=== PATIENT | male | born 1945 | race Caucasian/White ===

== ENCOUNTER 2017-01-29 09:53 | Emergency (ER) | payer MEDICAID, MEDICARE ==
[~2017-01-29] VITALS: Ht 160 cm; Wt 67.0 kg
[2017-01-29 09:56] VITALS: BP 158/79
== END 2017-01-29 11:20 | disposition home or self-care (01) ==
LOC: ER 10:28
DX: H60.91 Unspecified otitis externa, right ear (principal); K02.9 Dental caries, unspecified
CPT/HCPCS: 99283

== ENCOUNTER 2019-10-02 12:23 | Emergency (ER) | payer MEDICARE, MEDICAID ==
[~2019-10-02] VITALS: Ht 157.5 cm; Wt 66.0 kg
[~2019-10-02 12:23] MED LIST: INSU100I28 SQ; SITA50TA3 PO
[2019-10-02] MEDS: KETOROLAC 15MG/ML VIAL IM ONE (15:10)
[2019-10-02 16:24] LABS: CLARITY URINE CLEAR (CLEAR); COLOR URINE YELLOW (YELLOW); KETONES URINE TRACE (NEGATIVE); LEUKOCYTE ESTERASE URINE NEGATIVE (NEGATIVE); NITRITE URINE NEGATIVE (NEGATIVE); OCCULT BLOOD URINE NEGATIVE (NEGATIVE); PROTEIN URINE TRACE (NEGATIVE); SPECIFIC GRAVITY URINE 1.025 (1.005-1.030); UROBILINOGEN URINE 0.2 E.U./dL (0.2-1.0)
[2019-10-02 17:16] VITALS: BP 140/72
== END 2019-10-02 17:18 | disposition home or self-care (01) ==
LOC: ER 12:23
DX: M54.2 Cervicalgia (principal); M54.5 Low back pain; E11.9 Type 2 diabetes mellitus without complications; I10 Essential (primary) hypertension; R07.89 Other chest pain; Z79.4 Long term (current) use of insulin; Z79.899 Other long term (current) drug therapy; V49.88XA Car occupant (driver) (passenger) injured in other specified transport accidents, initial encounter; Y93.89 Activity, other specified; Y92.89 Other specified places as the place of occurrence of the external cause; Y99.8 Other external cause status
CPT/HCPCS: 71045; 72125; 72131; 81003; 96372; 99284; J1885

== ENCOUNTER 2020-07-03 02:31 | Inpatient (IN) | payer MEDICARE, MEDICAID ==
[~2020-07-03] VITALS: Ht 170.2 cm; Wt 68.0 kg
[2020-07-03] MEDS ORDERED: ONDANSETRON HCL 4MG/2ML INJ IV ONE (03:15)
[2020-07-03] MEDS ORDERED: MORPHINE SULFATE 4 MG/ML CPJ (NOT FOR IM USE) IV ONE (03:15)
[2020-07-03 03:59] LABS: BASOPHILS % 0.5 % (0.0-2.0); EOSINOPHILS % 1.2 % (0.0-5.0); HEMATOCRIT. 39.1 % (42.0-52.0); HEMOGLOBIN. 12.9 g/dL (14.0-18.0); LYMPHOCYTES % 15.5 % (20.0-50.0); MEAN CORPUSCULAR HEMOGLOBIN 29.1 pg (28.0-32.0); MEAN CORPUSCULAR VOLUME 87.7 fL (80.0-94.0); MEAN PLATELET VOLUME 8.9 fl (7.4-10.4); MONOCYTES % 5.8 % (2.0-8.0); PLATELET 269 x1000/uL (130-400); RED BLOOD CELL COUNT 4.46 mill/uL (4.7-6.1)
[2020-07-03 04:04] LABS: CHLORIDE 104 mEq/L (98-107)
[2020-07-03 04:09] LABS: ETHANOL BLOOD < 10 mg/dL
[2020-07-03 04:10] LABS: PROTHROMBIN TIME 10.6 sec (9.6-11.0)
[2020-07-03] MEDS ORDERED: PIPERACILLIN/TAZOBACTAM 3.375GM/50ML PREMIX IV ONE (05:15)
[2020-07-03] MEDS ORDERED: PIPERACILLIN/TAZ 3.375G PREMIX 50 ML IV NR (05:15)
[2020-07-03 06:47] LABS: CLARITY URINE CLEAR (CLEAR); COLOR URINE YELLOW (YELLOW); KETONES URINE 2+ (NEGATIVE); LEUKOCYTE ESTERASE URINE NEGATIVE (NEGATIVE); NITRITE URINE NEGATIVE (NEGATIVE); OCCULT BLOOD URINE NEGATIVE (NEGATIVE); PH URINE 5.5 (4.5-8.0); PROTEIN URINE 1+ (NEGATIVE); UROBILINOGEN URINE 0.2 E.U./dL (0.2-1.0)
[2020-07-03] MEDS ORDERED: DOCUSATE SODIUM 100MG CAPSULE PO PRN (07:15)
[2020-07-03] MEDS ORDERED: ACETAMINOPHEN 325MG TABLET PO PRN (07:15)
[2020-07-03] MEDS ORDERED: GUAIFENESIN 200MG/10ML SUGAR FREE UDC PO PRN (07:15)
[2020-07-03] MEDS ORDERED: TRAMADOL 50MG TABLET PO PRN (07:15)
[2020-07-03] MEDS ORDERED: IPRATROPIUM/ALBUTEROL 0.5-3(2.5)MG/3ML NEB NEB PRN (07:15)
[2020-07-03] MEDS ORDERED: NITROGLYCERIN 0.4MG TABLET SL SL PRN (07:15)
[2020-07-03] MEDS ORDERED: MAGNESIUM/ALUMINUM HYDROXIDE/SIMETHICONE 30ML UDC PO PRN (07:15)
[2020-07-03] MEDS ORDERED: DEXTROSE 50% WATER 50ML SYRINGE IV PRN (07:15)
[2020-07-03] MEDS ORDERED: ONDANSETRON HCL 4MG/2ML INJ IV PRN (07:15)
[2020-07-03 07:21] LABS: *BARBITURATES SCREEN URINE NEGATIVE (NEGATIVE); *BENZODIAZEPINES SCREEN URINE NEGATIVE (NEGATIVE); *COCAINE SCREEN URINE NEGATIVE (NEGATIVE); METHADONE URINE SCREEN NEGATIVE (NEGATIVE)
[2020-07-03 07:22] LABS: *AMPHETAMINES SCREEN URINE NEGATIVE (NEGATIVE); CANNABINOID URINE SCREEN NEGATIVE (NEGATIVE); OPIATES URINE SCREEN PRESUMTIVE POSITIVE (NEGATIVE); PHENCYCLIDINE URINE SCREEN NEGATIVE (NEGATIVE)
[2020-07-03 07:38] LABS: TOTAL IRON BINDING CAPACITY 276 ug/dL (250-450)
[2020-07-03] MEDS: DEXT 5%/LACTATED RINGERS 1,000 ML IV SCH ×2 (08:00→14:41)
[2020-07-03 08:01] LABS: FOLIC ACID (FOLATE) SERUM >20 ng/mL ng/mL (>5.38)
[2020-07-03 08:12] LABS: VITAMIN B12 SERUM 813 pg/mL (211-911)
[2020-07-03] MEDS: INSULIN LISPRO 100 UNITS/ML SUBCUT SCH ×5 (08:20→21:20)
[2020-07-03] MEDS: BLOOD SUGAR DIAGNOSTIC STRIP TEST SCH ×4 (09:00→20:59)
[2020-07-03 09:19] VITALS: BP 158/82
[2020-07-03 10:00] VITALS: BP 158/82
[2020-07-03] MEDS: ENOXAPARIN 40MG/0.4ML SYR SUBCUT SCH (11:19)
[2020-07-03] MEDS: PANTOPRAZOLE SODIUM 40 MG/VIAL IV SCH (11:19)
[2020-07-03] MEDS ORDERED: PIPERACILLIN/TAZOBACTAM 3.375 G in DEXT 5% WATER 100 ML IV SCH (14:00)
[2020-07-03] MEDS: PIPERACILLIN/TAZOBACTAM 3.375 G in DEXT 5% WATER 100 ML IV SCH ×2 (14:52→21:00)
[2020-07-03 17:00] VITALS: BP 155/78
[2020-07-03 17:40] VITALS: BP 155/78
[2020-07-03 20:00] VITALS: BP 161/84
[2020-07-03] MEDS ORDERED: ZOLPIDEM TARTRATE 5MG TABLET PO PRN (21:00)
[2020-07-03] MEDS: CLONIDINE 0.1MG TABLET PO PRN (21:00)
[2020-07-03 22:00] VITALS: BP 141/72
[2020-07-04] VITALS (7 sets, daily range): BP systolic 131–167; BP diastolic 64–84
[2020-07-04] MEDS: MORPHINE SULFATE 2 MG/ML CPJ (NOT FOR IM USE) IV PRN ×3 (00:40→17:09)
[2020-07-04] MEDS: CLONIDINE 0.1MG TABLET PO PRN (04:22)
[2020-07-04] MEDS: PIPERACILLIN/TAZOBACTAM 3.375 G in DEXT 5% WATER 100 ML IV SCH ×3 (05:57→21:33)
[2020-07-04] MEDS: BLOOD SUGAR DIAGNOSTIC STRIP TEST SCH ×4 (05:57→21:07)
[2020-07-04] MEDS: INSULIN LISPRO 100 UNITS/ML SUBCUT SCH ×4 (06:08→21:33)
[2020-07-04] MEDS: PANTOPRAZOLE SODIUM 40 MG/VIAL IV SCH (08:28)
[2020-07-04] MEDS: ENOXAPARIN 40MG/0.4ML SYR SUBCUT SCH (08:28)
[2020-07-04] MEDS: DEXT 5%/LACTATED RINGERS 1,000 ML IV SCH ×2 (09:08→22:58)
[2020-07-04] MEDS: ACETAMINOPHEN 325MG TABLET PO PRN (17:08)
[2020-07-05] VITALS: BP 140/75
[2020-07-05] MEDS: ACETAMINOPHEN 325MG TABLET PO PRN ×3 (00:22→18:33)
[2020-07-05 04:00] VITALS: BP 145/76
[2020-07-05] MEDS: PIPERACILLIN/TAZOBACTAM 3.375 G in DEXT 5% WATER 100 ML IV SCH ×3 (05:36→21:02)
[2020-07-05] MEDS: MORPHINE SULFATE 2 MG/ML CPJ (NOT FOR IM USE) IV PRN ×2 (05:53→21:24)
[2020-07-05] MEDS: BLOOD SUGAR DIAGNOSTIC STRIP TEST SCH ×4 (06:06→21:01)
[2020-07-05] MEDS: INSULIN LISPRO 100 UNITS/ML SUBCUT SCH ×4 (06:23→21:23)
[2020-07-05 08:00] VITALS: BP 143/78
[2020-07-05] MEDS: PANTOPRAZOLE SODIUM 40 MG/VIAL IV SCH (09:05)
[2020-07-05] MEDS: ENOXAPARIN 40MG/0.4ML SYR SUBCUT SCH (09:05)
[2020-07-05 12:00] VITALS: BP 139/82
[2020-07-05 12:01] LABS: HEMATOCRIT. 36.5 % (42.0-52.0); MEAN CORPUSCULAR HEMOGLOBIN 28.7 pg (28.0-32.0); MEAN CORPUSCULAR VOLUME 87.6 fL (80.0-94.0); MEAN PLATELET VOLUME 9.4 fl (7.4-10.4); PLATELET 182 x1000/uL (130-400); RED BLOOD CELL COUNT 4.17 mill/uL (4.7-6.1); RED CELL DISTRIBUTION WIDTH 13.6 % (11.6-14.6)
[2020-07-05 12:06] LABS: CHLORIDE 103 mEq/L (98-107)
[2020-07-05] MEDS: DEXT 5%/LACTATED RINGERS 1,000 ML IV SCH (13:01)
[2020-07-05 13:16] LABS: PLATELET ESTIMATE NORMAL
[2020-07-05 16:00] VITALS: BP 132/77
[2020-07-05 20:00] VITALS: BP 159/80
[2020-07-06] VITALS: BP 160/76
[2020-07-06] MEDS: DEXT 5%/LACTATED RINGERS 1,000 ML IV SCH ×3 (01:53→22:35)
[2020-07-06 04:00] VITALS: BP 157/79
[2020-07-06] MEDS: BLOOD SUGAR DIAGNOSTIC STRIP TEST SCH ×4 (06:10→21:40)
[2020-07-06] MEDS: PIPERACILLIN/TAZOBACTAM 3.375 G in DEXT 5% WATER 100 ML IV SCH ×3 (06:10→21:43)
[2020-07-06] MEDS: INSULIN LISPRO 100 UNITS/ML SUBCUT SCH ×4 (06:35→21:55)
[2020-07-06 07:11] LABS: CHLORIDE 104 mEq/L (98-107)
[2020-07-06 07:29] LABS: PHOSPHORUS 2.9 mg/dL (2.5-4.9)
[2020-07-06 08:00] VITALS: BP 176/93
[2020-07-06] MEDS: ENOXAPARIN 40MG/0.4ML SYR SUBCUT SCH (08:18)
[2020-07-06] MEDS: PANTOPRAZOLE SODIUM 40 MG/VIAL IV SCH (08:18)
[2020-07-06] MEDS: ACETAMINOPHEN 325MG TABLET PO PRN (08:19)
[2020-07-06] MEDS: CLONIDINE 0.1MG TABLET PO PRN (08:19)
[2020-07-06 10:20] LABS: HEMATOCRIT. 33.9 % (42.0-52.0); HEMOGLOBIN. 11.5 g/dL (14.0-18.0); MEAN CORPUSCULAR HEMOGLOBIN 29.5 pg (28.0-32.0); MEAN CORPUSCULAR VOLUME 87.4 fL (80.0-94.0); MEAN PLATELET VOLUME 9.8 fl (7.4-10.4); PLATELET 161 x1000/uL (130-400); RED BLOOD CELL COUNT 3.88 mill/uL (4.7-6.1); RED CELL DISTRIBUTION WIDTH 13.2 % (11.6-14.6)
[2020-07-06 12:00] VITALS: BP 150/80
[2020-07-06 12:56] LABS: PLATELET ESTIMATE NORMAL
[2020-07-06 16:00] VITALS: BP_SYST 159; BP_SYST 170; BP_DIAS 87
[2020-07-06 20:00] VITALS: BP 164/83
[2020-07-07] VITALS: BP 150/80
[2020-07-07 04:00] VITALS: BP 173/86
[2020-07-07 05:17] VITALS: BP 173/86
[2020-07-07] MEDS: PIPERACILLIN/TAZOBACTAM 3.375 G in DEXT 5% WATER 100 ML IV SCH ×2 (06:22→14:44)
[2020-07-07] MEDS ORDERED: BUPIVACAINE HCL 0.5% (5MG/ML) 50ML ONE (06:52)
[2020-07-07] MEDS ORDERED: SKIN ADHESIVE 0.7 GM EA TOP ONE (06:52)
[2020-07-07] MEDS: BLOOD SUGAR DIAGNOSTIC STRIP TEST SCH ×4 (07:10→21:55)
[2020-07-07] MEDS ORDERED: ROCURONIUM BROMIDE 10MG/ML VIAL 5ML IV ONE (07:28)
[2020-07-07] MEDS ORDERED: NEOSTIGMINE METHYLSULFATE 1MG/ML 10 ML VIAL ONE (07:28)
[2020-07-07] MEDS ORDERED: FENTANYL CITRATE/PF 50MCG/ML 2ML VIAL ONE ×2 (07:28→08:17)
[2020-07-07] MEDS ORDERED: MIDAZOLAM HCL 2 MG/2 ML VIAL ONE (07:29)
[2020-07-07] MEDS ORDERED: EPHEDRINE SULFATE 50MG/ML VIAL ONE (07:29)
[2020-07-07] MEDS ORDERED: CEFAZOLIN SODIUM 1000MG/VIAL ONE (07:29)
[2020-07-07] MEDS ORDERED: SUCCINYLCHOLINE CHLORIDE 200MG/10ML IV ONE (07:29)
[2020-07-07] MEDS ORDERED: PROPOFOL 200MG/20ML VIAL IV ONE (07:29)
[2020-07-07] MEDS ORDERED: METOCLOPRAMIDE HCL 10MG/2ML VIAL ONE (07:29)
[2020-07-07] MEDS ORDERED: ONDANSETRON HCL 4MG/2ML INJ ONE (07:29)
[2020-07-07] MEDS ORDERED: GLYCOPYRROLATE 0.2 MG/ML 2ML VIAL ONE (07:29)
[2020-07-07] MEDS ORDERED: SODIUM CHLORIDE 0.9% 10ML VIAL ONE (07:29)
[2020-07-07] MEDS ORDERED: PHENYLEPHRINE HCL 10 MG/ML 1ML (IV VIAL) IV ONE (07:29)
[2020-07-07] MEDS ORDERED: MORPHINE SULFATE 2 MG/ML CPJ (NOT FOR IM USE) IV PRN ×2 (07:30→09:00)
[2020-07-07] MEDS ORDERED: HYDROCODONE/ACETAMINOPHEN 5/325MG TABLET PO PRN ×2 (07:30)
[2020-07-07] MEDS ORDERED: MORPHINE SULFATE 4 MG/ML CPJ (NOT FOR IM USE) IV PRN (07:30)
[2020-07-07] MEDS: INSULIN LISPRO 100 UNITS/ML SUBCUT SCH ×4 (07:40→21:58)
[2020-07-07] MEDS ORDERED: LABETALOL HCL 5MG/ML VIAL 20ML IV ONE (08:23)
[2020-07-07] MEDS ORDERED: SODIUM CHLORIDE 0.9% 1,000 ML IV ONE (08:50)
[2020-07-07] MEDS ORDERED: MEPERIDINE HCL/PF 25MG/ML CPJ IV PRN (09:00)
[2020-07-07] MEDS ORDERED: HYDROMORPHONE HCL/PF 2MG/ML CPJ IV PRN (09:00)
[2020-07-07] MEDS: ENOXAPARIN 40MG/0.4ML SYR SUBCUT SCH (09:00)
[2020-07-07] MEDS: PANTOPRAZOLE SODIUM 40 MG/VIAL IV SCH (09:00)
[2020-07-07] MEDS: DEXT 5%/0.45% NACL KCL 20MEQ/L 1,000 ML IV SCH ×2 (09:00→18:18)
[2020-07-07] MEDS ORDERED: ONDANSETRON HCL 4MG/2ML INJ IV PRN (09:00)
[2020-07-07] MEDS ORDERED: LABETALOL 5MG/ML SYR 20 MG/4 ML SYRINGE IV PRN (09:30)
[2020-07-07 11:52] VITALS: BP 166/89
[2020-07-07] MEDS: CLONIDINE 0.1MG TABLET PO PRN (13:04)
[2020-07-07 16:32] VITALS: BP 163/87
[2020-07-07 20:00] VITALS: BP 165/89
[2020-07-08] VITALS: BP 138/72
[2020-07-08 04:00] VITALS: BP 146/68
[2020-07-08] MEDS: PIPERACILLIN/TAZOBACTAM 3.375 G in DEXT 5% WATER 100 ML IV SCH ×3 (05:11→14:23)
[2020-07-08] MEDS: DEXT 5%/0.45% NACL KCL 20MEQ/L 1,000 ML IV SCH ×2 (05:12→16:10)
[2020-07-08] MEDS: BLOOD SUGAR DIAGNOSTIC STRIP TEST SCH ×3 (06:30→17:10)
[2020-07-08] MEDS: INSULIN LISPRO 100 UNITS/ML SUBCUT SCH ×3 (06:38→17:40)
[2020-07-08] MEDS: ENOXAPARIN 40MG/0.4ML SYR SUBCUT SCH (08:59)
[2020-07-08] MEDS ORDERED: FAMOTIDINE 20MG/2ML VIAL IV SCH (09:00)
[2020-07-08 11:49] VITALS: BP 128/80
[2020-07-08 16:00] VITALS: BP 150/75
[2020-07-08 18:01] VITALS: BP 130/65
== END 2020-07-08 19:25 | disposition home or self-care (01) | DRG 417 ==
LOC: ER 03:44 → 8WST 06:00 → ENRESERV 07:17
PROVIDERS: ADMIT Internal Medicine; ATTEND Internal Medicine
PROC: 0FT44ZZ Resection of Gallbladder, Percutaneous Endoscopic Approach (ICD-10-PCS; principal; 2020-07-07)
DX: K80.00 Calculus of gallbladder with acute cholecystitis without obstruction (principal); N17.0 Acute kidney failure with tubular necrosis; D63.8 Anemia in other chronic diseases classified elsewhere; Z20.828 Contact with and (suspected) exposure to other viral communicable diseases; E11.9 Type 2 diabetes mellitus without complications; Z79.4 Long term (current) use of insulin; Z79.899 Other long term (current) drug therapy
CPT/HCPCS: 36415; 73706; 74176; 76705; 80053; 80305; 80320; 81003; 82010; 82607; 82746; 82962; 83036; 83540; 83550; 83605; 83735; 84100; 85025; 87635; 88304; 93005; 93970; 99285; C9113; J0330; J0690; J1170; J1650; J1815; J2250; J2270; J2370; J2405; J2543; J2704; J2710; J2765; J3010; J3490; J7060; G0480

== ENCOUNTER 2020-07-18 14:12 | Inpatient (IN) | payer MEDICARE, MEDICAID ==
[~2020-07-18] VITALS: Ht 162.6 cm; Wt 73.0 kg
[2020-07-18] MEDS ORDERED: ONDANSETRON HCL 4MG/2ML INJ IV ONE (16:00)
[2020-07-18 17:23] LABS: HEMOGLOBIN. 12.4 g/dL (14.0-18.0); MEAN CORPUSCULAR HEMOGLOBIN 28.9 pg (28.0-32.0); MEAN CORPUSCULAR VOLUME 93.1 fL (80.0-94.0); MEAN PLATELET VOLUME 9.2 fl (7.4-10.4); PLATELET 671 x1000/uL (130-400)
[2020-07-18 17:31] LABS: CHLORIDE 91 mEq/L (98-107)
[2020-07-18 17:35] LABS: PROTHROMBIN TIME 10.5 sec (9.6-11.0)
[2020-07-18] MEDS ORDERED: INSULIN REGULAR (DRIP) 100 UNITS in SODIUM CHLORIDE 0.9% 99 ML IV ONE (18:15)
[2020-07-18 18:32] LABS: PLATELET ESTIMATE INCREASED
[2020-07-18] MEDS ORDERED: INSULIN REGULAR (DRIP) 100 UNITS in SODIUM CHLORIDE 0.9% 99 ML IV NR (18:45)
[2020-07-18] MEDS ORDERED: VANCOMYCIN 1 G PREMIX 200 ML IV SCH (19:45)
[2020-07-18] MEDS ORDERED: PIPERACILLIN/TAZ 3.375G PREMIX 50 ML IV ONE (19:45)
[2020-07-19] VITALS (27 sets, daily range): BP systolic 109–177; BP diastolic 54–100
[2020-07-19] MEDS ORDERED: DIPHENHYDRAMINE 50MG/ML VIAL IV PRN (00:30)
[2020-07-19] MEDS ORDERED: LABETALOL 5MG/ML SYR 20 MG/4 ML SYRINGE IV PRN (00:30)
[2020-07-19] MEDS ORDERED: ONDANSETRON HCL 4MG/2ML INJ IV PRN (00:30)
[2020-07-19] MEDS ORDERED: PIPERACILLIN/TAZ 3.375G PREMIX 50 ML IV SCH (00:30)
[2020-07-19] MEDS ORDERED: ACETAMINOPHEN 325MG TABLET PO PRN ×2 (00:30)
[2020-07-19] MEDS ORDERED: INSULIN REGULAR (DRIP) 100 UNITS in SODIUM CHLORIDE 0.9% 99 ML IV ONE (00:30)
[2020-07-19] MEDS ORDERED: INSULIN REGULAR (DRIP) 100 UNITS in SODIUM CHLORIDE 0.9% 100 ML IV SCH ×3 (01:35→07:30)
[2020-07-19] MEDS ORDERED: DEXTROSE 50% WATER 50ML SYRINGE IV PRN ×6 (01:45→10:30)
[2020-07-19] MEDS ORDERED: BLOOD SUGAR DIAGNOSTIC STRIP TEST SCH (01:45)
[2020-07-19] MEDS ORDERED: IOHEXOL-300 100 ML BOTTLE ONE (01:49)
[2020-07-19] MEDS: BLOOD SUGAR DIAGNOSTIC STRIP TEST SCH ×12 (02:24→23:38)
[2020-07-19] MEDS: SODIUM CHLORIDE 0.9% 1,000 ML IV SCH ×6 (02:28→22:51)
[2020-07-19 06:17] LABS: HEMATOCRIT. 37.3 % (42.0-52.0); HEMOGLOBIN. 12.3 g/dL (14.0-18.0); MEAN CORPUSCULAR HEMOGLOBIN 28.7 pg (28.0-32.0); MEAN CORPUSCULAR VOLUME 87.2 fL (80.0-94.0); MEAN PLATELET VOLUME 8.9 fl (7.4-10.4); PLATELET 580 x1000/uL (130-400); RED BLOOD CELL COUNT 4.27 mill/uL (4.7-6.1); RED CELL DISTRIBUTION WIDTH 13.8 % (11.6-14.6)
[2020-07-19] MEDS: PIPERACILLIN/TAZOBACTAM 2.25 G in DEXTROSE 5% WATER 50 ML IV SCH ×4 (06:25→23:29)
[2020-07-19 06:30] LABS: PHOSPHORUS 1.6 mg/dL (2.5-4.9)
[2020-07-19] MEDS ORDERED: INSULIN REGULAR (DRIP) 100 UNITS in SODIUM CHLORIDE 0.9% 99 ML IV SCH (08:05)
[2020-07-19] MEDS ORDERED: ENOXAPARIN 40MG/0.4ML SYR SUBCUT SCH (09:00)
[2020-07-19] MEDS: PANTOPRAZOLE SODIUM 40 MG/VIAL IV SCH (09:09)
[2020-07-19] MEDS ORDERED: LIDOCAINE HCL 1% 20ML VIAL (Pyxis) INJ ONE (10:03)
[2020-07-19] MEDS ORDERED: FENTANYL CITRATE/PF 50MCG/ML 2ML VIAL ONE (10:03)
[2020-07-19] MEDS ORDERED: SODIUM BICARBONATE 4% (2.4MEQ) 5ML VIAL IV ONE (10:03)
[2020-07-19] MEDS ORDERED: FENTANYL CITRATE/PF 50MCG/ML 2ML VIAL IV ONE (11:15)
[2020-07-19] MEDS ORDERED: KCL 20MEQ/100ML PREMIX 100 ML IV SCH (12:00)
[2020-07-19] MEDS ORDERED: POTASSIUM PHOS,M-BASIC-D-BASIC 20 MMOL in DEXT 5% WATER 243.3333 ML IV SCH (12:00)
[2020-07-19] MEDS: INSULIN LISPRO 100 UNITS/ML SUBCUT SCH ×2 (12:00→16:23)
[2020-07-19 12:09] LABS: PLATELET ESTIMATE INCREASED
[2020-07-19] MEDS: CLONIDINE 0.1MG TABLET PO PRN (17:02)
[2020-07-19] MEDS ORDERED: INSULIN GLARGINE UD 100 UNITS/ML SYR SUBCUT NR (23:00)
[2020-07-20] VITALS: BP 149/77
[2020-07-20] MEDS ORDERED: INSULIN LISPRO 100 UNITS/ML SUBCUT SCH
[2020-07-20] MEDS: BLOOD SUGAR DIAGNOSTIC STRIP TEST SCH ×5 (02:17→21:00)
[2020-07-20] MEDS: INSULIN LISPRO 100 UNITS/ML SUBCUT SCH ×6 (02:20→21:31)
[2020-07-20] MEDS: SODIUM CHLORIDE 0.9% 1,000 ML IV SCH ×5 (03:39→17:28)
[2020-07-20 04:00] VITALS: BP 133/79
[2020-07-20] MEDS: PIPERACILLIN/TAZOBACTAM 2.25 G in DEXTROSE 5% WATER 50 ML IV SCH ×3 (05:41→17:29)
[2020-07-20 08:00] VITALS: BP_SYST 111; BP_SYST 159; BP_DIAS 69; BP_DIAS 74
[2020-07-20] MEDS: PANTOPRAZOLE SODIUM 40 MG/VIAL IV SCH (09:13)
[2020-07-20 12:00] VITALS: BP 113/71
[2020-07-20 16:00] VITALS: BP 160/83
[2020-07-20] MEDS ORDERED: POTASSIUM CHLORIDE 20MEQ TABLET SR PO NR ×2 (16:00→17:00)
[2020-07-20 16:44] LABS: BASOPHILS % 0.5 % (0.0-2.0); EOSINOPHILS % 0.4 % (0.0-5.0); HEMATOCRIT. 32.4 % (42.0-52.0); LYMPHOCYTES % 9.9 % (20.0-50.0); MEAN CORPUSCULAR HEMOGLOBIN 29.7 pg (28.0-32.0); MEAN CORPUSCULAR VOLUME 87.5 fL (80.0-94.0); MONOCYTES % 7.5 % (2.0-8.0); NEUTROPHILS % 81.7 % (40.0-76.0); PLATELET 384 x1000/uL (130-400); RED CELL DISTRIBUTION WIDTH 14.2 % (11.6-14.6)
[2020-07-20] MEDS ORDERED: POTASSIUM PHOS,M-BASIC-D-BASIC 20 MMOL in DEXT 5% WATER 243.3333 ML IV SCH (18:30)
[2020-07-20 20:00] VITALS: BP 167/78
[2020-07-21] VITALS: BP 191/107
[2020-07-21] MEDS: PIPERACILLIN/TAZOBACTAM 2.25 G in DEXTROSE 5% WATER 50 ML IV SCH ×2 (00:42→05:56)
[2020-07-21] MEDS: CLONIDINE 0.1MG TABLET PO PRN (00:43)
[2020-07-21 04:00] VITALS: BP 108/60
[2020-07-21] MEDS: BLOOD SUGAR DIAGNOSTIC STRIP TEST SCH ×4 (05:56→21:45)
[2020-07-21] MEDS: SODIUM CHLORIDE 0.9% 1,000 ML IV SCH (05:56)
[2020-07-21] MEDS: INSULIN LISPRO 100 UNITS/ML SUBCUT SCH ×4 (06:34→21:46)
[2020-07-21 08:00] VITALS: BP 137/69
[2020-07-21] MEDS: PANTOPRAZOLE SODIUM 40 MG/VIAL IV SCH (08:14)
[2020-07-21 12:00] VITALS: BP 146/75
[2020-07-21] MEDS: MEROPENEM 500 MG in SODIUM CHLORIDE 0.9% 50 ML IV SCH ×2 (14:03→21:44)
[2020-07-21 16:00] VITALS: BP 143/73
[2020-07-21 20:00] VITALS: BP 156/80
[2020-07-22] VITALS: BP 161/80
[2020-07-22] MEDS: CLONIDINE 0.1MG TABLET PO PRN (00:55)
[2020-07-22 04:00] VITALS: BP 136/72
[2020-07-22 05:02] LABS: CHLORIDE 108 mEq/L (98-107)
[2020-07-22 05:07] LABS: PHOSPHORUS 2.3 mg/dL (2.5-4.9)
[2020-07-22] MEDS: MEROPENEM 500 MG in SODIUM CHLORIDE 0.9% 50 ML IV SCH ×3 (05:26→21:20)
[2020-07-22 05:30] LABS: BASOPHILS % 0.4 % (0.0-2.0); EOSINOPHILS % 0.5 % (0.0-5.0); HEMATOCRIT. 32.2 % (42.0-52.0); HEMOGLOBIN. 10.6 g/dL (14.0-18.0); LYMPHOCYTES % 12.1 % (20.0-50.0); MEAN CORPUSCULAR HEMOGLOBIN 28.6 pg (28.0-32.0); MEAN CORPUSCULAR VOLUME 87.1 fL (80.0-94.0); MEAN PLATELET VOLUME 9.1 fl (7.4-10.4); MONOCYTES % 5.9 % (2.0-8.0); NEUTROPHILS % 81.1 % (40.0-76.0); PLATELET 329 x1000/uL (130-400); RED BLOOD CELL COUNT 3.69 mill/uL (4.7-6.1); RED CELL DISTRIBUTION WIDTH 13.7 % (11.6-14.6)
[2020-07-22] MEDS: INSULIN LISPRO 100 UNITS/ML SUBCUT SCH ×4 (06:30→21:21)
[2020-07-22] MEDS: BLOOD SUGAR DIAGNOSTIC STRIP TEST SCH ×4 (06:31→21:22)
[2020-07-22 08:00] VITALS: BP 132/71
[2020-07-22] MEDS: PANTOPRAZOLE SODIUM 40 MG/VIAL IV SCH (09:20)
[2020-07-22 12:00] VITALS: BP 128/70
[2020-07-22] MEDS ORDERED: MAGNESIUM 4 G PREMIX 100 ML IV NR (12:00)
[2020-07-22 16:00] VITALS: BP 137/72
[2020-07-22] MEDS: METFORMIN HCL 500MG TABLET PO SCH (17:56)
[2020-07-22 20:00] VITALS: BP 129/76
[2020-07-22] MEDS: OMEPRAZOLE 20MG CAPSULE EXTENDED RELEASE PO SCH (21:20)
[2020-07-22] MEDS ORDERED: INSULIN GLARGINE UD 100 UNITS/ML SYR SUBCUT SCH (22:00)
[2020-07-23] VITALS: BP 150/88
[2020-07-23 04:00] VITALS: BP 154/85
[2020-07-23] MEDS: INSULIN LISPRO 100 UNITS/ML SUBCUT SCH ×3 (06:45→17:46)
[2020-07-23] MEDS: BLOOD SUGAR DIAGNOSTIC STRIP TEST SCH ×3 (06:50→17:28)
[2020-07-23] MEDS: MEROPENEM 500 MG in SODIUM CHLORIDE 0.9% 50 ML IV SCH ×2 (06:51→14:45)
[2020-07-23] MEDS: OMEPRAZOLE 20MG CAPSULE EXTENDED RELEASE PO SCH (07:37)
[2020-07-23] MEDS: METFORMIN HCL 500MG TABLET PO SCH ×2 (07:37→17:43)
[2020-07-23 08:00] VITALS: BP 154/79
[2020-07-23 12:00] VITALS: BP 149/77
[2020-07-23 16:00] VITALS: BP 135/73
[2020-07-23 18:23] VITALS: BP 118/70
== END 2020-07-23 18:55 | disposition home or self-care (01) | DRG 862 ==
LOC: ER 14:12 → CVICU 19:32 → EDBEDREQTM 19:42 → EDBEDREQ 19:42 → ENRESERV 22:53 → 5WST 07-19 17:42
PROVIDERS: ADMIT Internal Medicine; ATTEND Internal Medicine
PROC: 0W9G30Z Drainage of Peritoneal Cavity with Drainage Device, Percutaneous Approach (ICD-10-PCS; principal; 2020-07-19)
DX: T81.41XA Infection following a procedure, superficial incisional surgical site, initial encounter (principal); A41.9 Sepsis, unspecified organism; E11.10 Type 2 diabetes mellitus with ketoacidosis without coma; E43 Unspecified severe protein-calorie malnutrition; L02.211 Cutaneous abscess of abdominal wall; N17.9 Acute kidney failure, unspecified; Z16.12 Extended spectrum beta lactamase (ESBL) resistance; I10 Essential (primary) hypertension; K57.30 Diverticulosis of large intestine without perforation or abscess without bleeding; Z79.4 Long term (current) use of insulin; Z90.49 Acquired absence of other specified parts of digestive tract; Z79.899 Other long term (current) drug therapy; Y92.89 Other specified places as the place of occurrence of the external cause; Z68.27 Body mass index [BMI] 27.0-27.9, adult; B96.20 Unspecified Escherichia coli [E. coli] as the cause of diseases classified elsewhere
CPT/HCPCS: 36415; 49180; 74177; 77012; 80048; 80053; 82010; 82962; 83735; 84100; 85025; 87077; 87186; 93005; 93970; 97116; 97162; 97530; 99152; 99153; 99291; C1769; C9113; J1650; J1815; J2185; J2405; J2543; J3010; J3370; J3475; J3480; J3490; J7050; J7060; L8514; Q9967; G0500

== ENCOUNTER 2022-10-29 12:21 | Inpatient (IN) | payer MEDICARE, MEDICAID ==
[~2022-10-29] VITALS: Ht 165.1 cm; Wt 63.0 kg
[2022-10-29] MEDS: KCL 20MEQ/100ML PREMIX 100 ML IV NR (00:15)
[2022-10-29] MEDS ORDERED: MAGNESIUM/ALUMINUM HYDROXIDE/SIMETHICONE 30ML UDC PO STA (15:16)
[2022-10-29] MEDS ORDERED: VISCOUS LIDOCAINE 2% 15 ML UDC PO STA (15:16)
[2022-10-29] MEDS ORDERED: MORPHINE SULFATE 4 MG/ML CPJ (NOT FOR IM USE) IV STA (15:16)
[2022-10-29 15:21] LABS: BASOPHILS % 0.1 % (0.0-2.0); HEMATOCRIT. 46.4 % (42.0-52.0); HEMOGLOBIN. 15.5 g/dL (14.0-18.0); LYMPHOCYTES % 10.6 % (20.0-50.0); MEAN CORPUSCULAR HEMOGLOBIN 29.1 pg (28.0-32.0); MEAN CORPUSCULAR VOLUME 87.3 fL (80.0-94.0); MEAN PLATELET VOLUME 9.5 fl (7.4-10.4); NEUTROPHILS % 84.3 % (40.0-76.0); PLATELET 316 x1000/uL (130-400); RED BLOOD CELL COUNT 5.32 mill/uL (4.7-6.1); RED CELL DISTRIBUTION WIDTH 13.2 % (11.6-14.6)
[2022-10-29 15:28] LABS: CHLORIDE 87 mEq/L (98-107)
[2022-10-29] MEDS ORDERED: ONDANSETRON HCL 4MG/2ML INJ IV NR (15:30)
[2022-10-29] MEDS ORDERED: INSULIN REGULAR 100U/100ML PMX 100 ML IV NR ×2 (16:45→17:00)
[2022-10-29] MEDS ORDERED: SODIUM CHLORIDE 0.9% 1,000 ML IV ONE (16:45)
[2022-10-29] MEDS ORDERED: INSULIN REGULAR (HUMULIN R) 300UNITS/3ML VIAL IV NR (16:45)
[2022-10-29 18:16] LABS: INR 0.9; PROTHROMBIN TIME 9.9 sec (9.6-11.0)
[2022-10-29] MEDS ORDERED: HYDRALAZINE 20MG/ML VIAL IV ONE (18:45)
[2022-10-29] MEDS ORDERED: DEXTROSE 50% WATER 50ML SYRINGE IV PRN ×2 (20:30→20:45)
[2022-10-29] MEDS ORDERED: KCL 20MEQ/100ML PREMIX 100 ML IV PRN (20:30)
[2022-10-29] MEDS ORDERED: DEXT 5%/0.45% NACL 1000ML 1,000 ML IV SCH (20:30)
[2022-10-29] MEDS ORDERED: MAGNESIUM 1 G PREMIX 100 ML IV PRN (20:30)
[2022-10-29] MEDS: BLOOD SUGAR DIAGNOSTIC STRIP TEST SCH ×4 (20:30→23:30)
[2022-10-29] MEDS ORDERED: INSULIN REGULAR 100U/100ML PMX 100 ML IV SCH ×2 (20:30→21:11)
[2022-10-29] MEDS ORDERED: IPRATROPIUM/ALBUTEROL 0.5-3(2.5)MG/3ML NEB HHN PRN (20:45)
[2022-10-29] MEDS ORDERED: ONDANSETRON HCL 4MG/2ML INJ IV PRN (20:45)
[2022-10-29] MEDS ORDERED: ACETAMINOPHEN 650MG SUPP PR PRN ×2 (20:45)
[2022-10-29] MEDS ORDERED: BLOOD SUGAR DIAGNOSTIC STRIP TEST SCH (21:00)
[2022-10-29 21:33] LABS: TOTAL IRON BINDING CAPACITY 216 ug/dL (250-450)
[2022-10-29] MEDS ORDERED: MORPHINE SULFATE 2 MG/ML CPJ (NOT FOR IM USE) IV PRN ×2 (22:00)
[2022-10-29] MEDS ORDERED: NALOXONE HCL 0.4MG/ML VIAL IV PRN (22:15)
[2022-10-29] MEDS ORDERED: HYDRALAZINE 20MG/ML VIAL IV PRN (22:15)
[2022-10-29 22:33] LABS: BG BASE EXCESS 4.2 mmol/L (-2.0-2.0); BG CARBOXYHEMOGLOBIN 1.3 % (0.5-1.5); BG DEOXYHEMOGLOBIN 4.7 % (0.0-5.0); BG FRACTION INSPIRED OXYGEN 21; BG HCO3 ACT 28.8 mmol/L (22.0-26.0); BG METHEMOGLOBIN 0.1 % (0.0-1.5); BG OXYGEN SATURATION 95.2 % (92.0-98.5); BG OXYHEMOGLOBIN 93.9 % (94.0-97.0); BG PCO2 43.2 mmHg (35.0-45.0); BG PH 7.442 (7.350-7.450); BG PO2 74.6 mmHg (75.0-100.0); BG SAMPLE SITE RIGHT RADIAL; BG TOTAL HEMOGLOBIN 14.4 g/dL (12.0-18.0); BG VENT MODE ROOM AIR
[2022-10-29 22:39] LABS: VITAMIN B12 SERUM >2000 pg/mL pg/mL (211-911)
[2022-10-29 22:44] LABS: PHOSPHORUS 3.4 mg/dL (2.5-4.9)
[2022-10-30] MEDS: KCL 20MEQ/100ML PREMIX 100 ML IV NR (00:15)
[2022-10-30] MEDS: BLOOD SUGAR DIAGNOSTIC STRIP TEST SCH ×17 (00:30→21:00)
[2022-10-30 00:33] LABS: PHOSPHORUS 3.1 mg/dL (2.5-4.9)
[2022-10-30] MEDS ORDERED: INSULIN LISPRO 100 UNITS/ML SUBCUT NR (01:15)
[2022-10-30] MEDS ORDERED: INSULIN GLARGINE 100 UNITS/ML SUBCUT NR (01:15)
[2022-10-30 02:03] LABS: PHOSPHORUS 2.6 mg/dL (2.5-4.9)
[2022-10-30 04:28] LABS: PHOSPHORUS 2.4 mg/dL (2.5-4.9); T4 FREE 1.07 ng/dL (0.76-1.46)
[2022-10-30] MEDS ORDERED: METRONIDAZOLE 500 MG PREMIX 100 ML IV NR (04:30)
[2022-10-30] MEDS ORDERED: CEFTRIAXONE 1 G PREMIX 50 ML IV NR (04:30)
[2022-10-30] MEDS ORDERED: DEXTROSE 50% WATER 50ML SYRINGE IV PRN (04:45)
[2022-10-30 06:02] LABS: BASOPHILS % 0.5 % (0.0-2.0); EOSINOPHILS % 1.8 % (0.0-5.0); HEMATOCRIT. 38.8 % (42.0-52.0); HEMOGLOBIN. 13.2 g/dL (14.0-18.0); LYMPHOCYTES % 25.3 % (20.0-50.0); MEAN CORPUSCULAR HEMOGLOBIN 29.1 pg (28.0-32.0); MEAN CORPUSCULAR VOLUME 85.5 fL (80.0-94.0); MEAN PLATELET VOLUME 8.9 fl (7.4-10.4); MONOCYTES % 10.9 % (2.0-8.0); NEUTROPHILS % 61.5 % (40.0-76.0); PLATELET 269 x1000/uL (130-400); RED BLOOD CELL COUNT 4.53 mill/uL (4.7-6.1); RED CELL DISTRIBUTION WIDTH 13.2 % (11.6-14.6)
[2022-10-30 06:15] LABS: PHOSPHORUS 2.5 mg/dL (2.5-4.9)
[2022-10-30] MEDS: SODIUM CHLORIDE 0.9% 1,000 ML IV SCH ×2 (07:00→17:53)
[2022-10-30] MEDS: INSULIN LISPRO 100 UNITS/ML SUBCUT SCH ×7 (08:06→21:26)
[2022-10-30] MEDS: FAMOTIDINE 20MG/2ML VIAL IV SCH (09:35)
[2022-10-30] MEDS: ENOXAPARIN 40MG/0.4ML SYR SUBCUT SCH (09:35)
[2022-10-30 11:26] VITALS: BP 157/80
[2022-10-30] MEDS ORDERED: TAMS-11 PO (11:36)
[2022-10-30] MEDS ORDERED: HUM100IN SQ (11:41)
[2022-10-30] MEDS ORDERED: GABA-529 PO (11:41)
[2022-10-30] MEDS ORDERED: TEST5GEL19 TD (11:41)
[2022-10-30] MEDS ORDERED: SEMA2PEN (11:41)
[2022-10-30] MEDS ORDERED: AMLO10TA80 PO (11:41)
[2022-10-30 12:00] VITALS: BP 152/92
[2022-10-30] MEDS ORDERED: SODIUM PHOS,M-BASIC-D-BASIC 10 MM in DEXT 5% WATER 246.6667 ML IV ONE (14:00)
[2022-10-30 16:00] VITALS: BP 135/74
[2022-10-30 16:50] LABS: PHOSPHORUS 2.6 mg/dL (2.5-4.9)
[2022-10-30] MEDS: AMLODIPINE 10MG TABLET PO SCH (18:01)
[2022-10-30 18:43] LABS: PHOSPHORUS 3.2 mg/dL (2.5-4.9)
[2022-10-30 20:00] VITALS: BP 135/71
[2022-10-30 21:04] LABS: PHOSPHORUS 2.2 mg/dL (2.5-4.9)
[2022-10-30] MEDS ORDERED: INSULIN GLARGINE 100 UNITS/ML SUBCUT SCH (22:00)
[2022-10-31] VITALS: BP 108/70
[2022-10-31 04:00] VITALS: BP 115/65
[2022-10-31] MEDS: BLOOD SUGAR DIAGNOSTIC STRIP TEST SCH ×2 (06:20→12:10)
[2022-10-31] MEDS: INSULIN LISPRO 100 UNITS/ML SUBCUT SCH ×4 (06:29→12:11)
[2022-10-31 06:33] LABS: BASOPHILS % 0.3 % (0.0-2.0); EOSINOPHILS % 2.8 % (0.0-5.0); HEMATOCRIT. 38.9 % (42.0-52.0); HEMOGLOBIN. 13.1 g/dL (14.0-18.0); LYMPHOCYTES % 45.7 % (20.0-50.0); MEAN CORPUSCULAR HEMOGLOBIN 28.9 pg (28.0-32.0); MEAN CORPUSCULAR VOLUME 85.5 fL (80.0-94.0); MEAN PLATELET VOLUME 9.2 fl (7.4-10.4); MONOCYTES % 14.1 % (2.0-8.0); NEUTROPHILS % 37.1 % (40.0-76.0); PLATELET 258 x1000/uL (130-400); RED BLOOD CELL COUNT 4.55 mill/uL (4.7-6.1); RED CELL DISTRIBUTION WIDTH 12.8 % (11.6-14.6)
[2022-10-31 08:29] VITALS: BP 116/74
[2022-10-31] MEDS: AMLODIPINE 10MG TABLET PO SCH (08:53)
[2022-10-31] MEDS: SODIUM CHLORIDE 0.9% 1,000 ML IV SCH (08:53)
[2022-10-31] MEDS: FAMOTIDINE 20MG/2ML VIAL IV SCH (08:53)
[2022-10-31] MEDS: ENOXAPARIN 40MG/0.4ML SYR SUBCUT SCH (08:53)
[2022-10-31] MEDS ORDERED: TAMSULOSIN HCL 0.4MG SR CAPSULE PO SCH (09:00)
[2022-10-31 11:53] VITALS: BP 130/62
== END 2022-10-31 14:15 | disposition home or self-care (01) | DRG 637 ==
LOC: ER 13:45 → MICUSO 17:56 → ENRESERV 10-30 10:22 → 8WST 10-30 11:00
PROVIDERS: ADMIT Internal Medicine; ATTEND Internal Medicine
DX: E11.10 Type 2 diabetes mellitus with ketoacidosis without coma (principal); G93.41 Metabolic encephalopathy; E87.1 Hypo-osmolality and hyponatremia; N17.9 Acute kidney failure, unspecified; K52.9 Noninfective gastroenteritis and colitis, unspecified; K57.90 Diverticulosis of intestine, part unspecified, without perforation or abscess without bleeding; Z20.822 Contact with and (suspected) exposure to COVID-19; E11.22 Type 2 diabetes mellitus with diabetic chronic kidney disease; E78.5 Hyperlipidemia, unspecified; E86.0 Dehydration; I12.9 Hypertensive chronic kidney disease with stage 1 through stage 4 chronic kidney disease, or unspecified chronic kidney disease; I25.10 Atherosclerotic heart disease of native coronary artery without angina pectoris; E11.65 Type 2 diabetes mellitus with hyperglycemia; K44.9 Diaphragmatic hernia without obstruction or gangrene; K76.0 Fatty (change of) liver, not elsewhere classified; N18.9 Chronic kidney disease, unspecified; N40.0 Benign prostatic hyperplasia without lower urinary tract symptoms; D63.1 Anemia in chronic kidney disease; Z90.49 Acquired absence of other specified parts of digestive tract; Z91.14 Patient's other noncompliance with medication regimen; Z79.4 Long term (current) use of insulin; Z79.84 Long term (current) use of oral hypoglycemic drugs; Z79.899 Other long term (current) drug therapy; Z82.49 Family history of ischemic heart disease and other diseases of the circulatory system; Z83.3 Family history of diabetes mellitus
CPT/HCPCS: 36415; 36600; 71045; 74176; 80048; 80053; 80061; 80320; 82010; 82375; 82607; 82746; 82805; 82962; 83036; 83540; 83550; 83735; 83930; 84100; 84439; 84443; 85025; 85044; 86850; 86900; 87426; 93005; 93970; 99291; J0696; J1650; J1815; J2270; J2405; J3480; J3490; J7030; J7060; G0480

== ENCOUNTER 2023-05-13 17:16 | Emergency (ER) | payer MEDICARE, MEDICAID ==
[~2023-05-13] VITALS: Ht 162.6 cm; Wt 77.3 kg
[~2023-05-13 17:16] MED LIST changes: +AMLO10TA80 PO; +GABA-529 PO; +HUM100IN SQ; +SEMA2PEN; +TAMS-11 PO; +TEST5GEL19 TD
[2023-05-13 17:40] LABS: BASOPHILS % 0.2 % (0.0-2.0); EOSINOPHILS % 0.4 % (0.0-5.0); HEMATOCRIT. 45.8 % (42.0-52.0); HEMOGLOBIN. 15.1 g/dL (14.0-18.0); LYMPHOCYTES % 15.4 % (20.0-50.0); MEAN CORPUSCULAR HEMOGLOBIN 29.2 pg (28.0-32.0); MEAN CORPUSCULAR VOLUME 88.9 fL (80.0-94.0); MEAN PLATELET VOLUME 9.4 fl (7.4-10.4); PLATELET 279 x1000/uL (130-400); RED BLOOD CELL COUNT 5.15 mill/uL (4.7-6.1); RED CELL DISTRIBUTION WIDTH 13.4 % (11.6-14.6)
[2023-05-13 17:50] VITALS: O2SAT 98
[2023-05-13 18:00] LABS: CHLORIDE 94 mEq/L (98-107)
[2023-05-13] MEDS ORDERED: SODIUM CHLORIDE 0.9% 1,000 ML IV ONE ×2 (18:15→19:15)
[2023-05-13 18:52] LABS: BG BASE EXCESS 3.5 mmol/L (-2.0-2.0); BG CARBOXYHEMOGLOBIN 1.3 % (0.5-1.5); BG DEOXYHEMOGLOBIN 6.3 % (0.0-5.0); BG FRACTION INSPIRED OXYGEN 21; BG METHEMOGLOBIN 0.5 % (0.0-1.5); BG OXYGEN SATURATION 93.6 % (92.0-98.5); BG OXYHEMOGLOBIN 91.9 % (94.0-97.0); BG PCO2 46.7 mmHg (35.0-45.0); BG PH 7.411 (7.350-7.450); BG PO2 68.3 mmHg (75.0-100.0); BG SAMPLE SITE RIGHT BRACHIAL; BG TOTAL HEMOGLOBIN 15.6 g/dL (12.0-18.0); BG VENT MODE ROOM AIR
[2023-05-13 19:00] LABS: BETA HYDROXYBUTYRATE 2.1 mMol/L (0.0-0.3)
[2023-05-13] MEDS ORDERED: INSULIN REGULAR (HUMULIN R) 300UNITS/3ML VIAL SUBCUT NR ×2 (19:15→21:30)
[2023-05-13] MEDS ORDERED: KETOROLAC 30MG/ML VIAL IV NR (20:00)
[2023-05-13] MEDS ORDERED: HYDRALAZINE 20MG/ML VIAL IV ONE (21:15)
[2023-05-13] MEDS ORDERED: AMLODIPINE 10MG TABLET PO ONE (21:15)
[2023-05-13] MEDS: AMLODIPINE 5MG TABLET PO NR ×2 (21:56→23:47)
[2023-05-14] MEDS ORDERED: INSULIN REGULAR (HUMULIN R) 300UNITS/3ML VIAL SUBCUT NR
[2023-05-14 01:33] VITALS: BP 132/74; PULSE 77; RESP 17; TEMP 98.3
== END 2023-05-14 01:36 | disposition home or self-care (01) ==
LOC: ER 17:16
DX: R10.13 Epigastric pain (principal); E11.9 Type 2 diabetes mellitus without complications; I10 Essential (primary) hypertension
CPT/HCPCS: 99285; 74176; 96374; 71045; 96361; 96375; 80053; 82010; 83690; 85025; 84484; 82805; 82375; 93005; 36600; 96372 ×2; 82962 ×2; 80048; 36415; J0360; J1885; J1815

== ENCOUNTER 2023-11-20 17:41 | Emergency (ER) | payer MEDICAID, MEDICARE, OTHER ==
[~2023-11-20] VITALS: Ht 167.6 cm; Wt 78.0 kg
[2023-11-20 17:50] VITALS: BP 202/95; PULSE 85; RESP 18; TEMP 96.1; O2SAT 99
[2023-11-20] MEDS ORDERED: MORPHINE SULFATE 4 MG/ML CPJ (NOT FOR IM USE) IV STA (17:51)
[2023-11-20] MEDS ORDERED: ONDANSETRON HCL 4MG/2ML INJ IV STA (17:51)
[2023-11-20] MEDS ORDERED: SODIUM CHLORIDE 0.9% 1,000 ML IV ONE ×2 (18:00→22:15)
[2023-11-20 21:24] LABS: BASOPHILS % 0.4 % (0.0-2.0); EOSINOPHILS % 2.2 % (0.0-5.0); HEMATOCRIT. 38.8 % (42.0-52.0); HEMOGLOBIN. 12.5 g/dL (14.0-18.0); LYMPHOCYTES % 26.9 % (20.0-50.0); MEAN CORPUSCULAR HEMOGLOBIN 28.5 pg (28.0-32.0); MEAN CORPUSCULAR HGB CONC 32.1 g/dL (31.0-37.0); MEAN CORPUSCULAR VOLUME 88.8 fL (80.0-94.0); MEAN PLATELET VOLUME 8.6 fl (7.4-10.4); MONOCYTES % 10.8 % (2.0-8.0); NEUTROPHILS % 59.7 % (40.0-76.0); PLATELET 380 x1000/uL (130-400); RED BLOOD CELL COUNT 4.37 mill/uL (4.7-6.1); RED CELL DISTRIBUTION WIDTH 13.6 % (11.6-14.6); WHITE BLOOD COUNT 6.5 x1000/uL (4.5-11.0)
[2023-11-20 21:40] LABS: ALANINE AMINOTRANSFERASE 15 IU/L (10-49); ASPARTATE AMINOTRANSFERASE 15 IU/L (<34); BILIRUBIN TOTAL 0.4 mg/dL (0.1-1.0); CALCIUM 9.2 mg/dL (8.7-10.4); CARBON DIOXIDE 25 mEq/L (21-32); CHLORIDE 95 mEq/L (98-107); CREATININE 1.2 mg/dL (0.6-1.3); POTASSIUM 4.3 mEq/L (3.5-5.1); PROTEIN TOTAL 7.4 g/dL (6.0-8.3); SODIUM 129 mEq/L (136-145); TROPONIN I HIGH SENSITIVITY 17 ng/L (3.0-53); UREA NITROGEN BLOOD 18 mg/dL (9-23)
[2023-11-20 21:42] LABS: GLUCOSE 471 mg/dL (70-105)
[2023-11-20] MEDS ORDERED: INSULIN REGULAR (HUMULIN R) UD 100 UNITS/ML SYR SUBCUT ONE (22:15)
[2023-11-20] MEDS ORDERED: INSULIN REGULAR (HUMULIN R) 300UNITS/3ML VIAL SUBCUT NR (22:30)
[2023-11-20] MEDS ORDERED: HYDR-4001 MT (22:32)
[2023-11-20] MEDS ORDERED: IBUP-2028 MT (22:32)
[2023-11-20] MEDS ORDERED: IOHEXOL-300 100 ML BOTTLE ONE (23:21)
== END 2023-11-21 01:05 | disposition home or self-care (01) ==
LOC: ER 17:41
DX: S92.252A Displaced fracture of navicular [scaphoid] of left foot, initial encounter for closed fracture (principal); S42.002A Fracture of unspecified part of left clavicle, initial encounter for closed fracture; I10 Essential (primary) hypertension; Z79.899 Other long term (current) drug therapy; E11.65 Type 2 diabetes mellitus with hyperglycemia; V49.49XA Driver injured in collision with other motor vehicles in traffic accident, initial encounter; Y93.89 Activity, other specified; Y92.89 Other specified places as the place of occurrence of the external cause; Y99.8 Other external cause status
CPT/HCPCS: 99285; 70450; 96374; 71045; 96361; 96375; 80053; 82962 ×2; 83690; 85025; 84484; 36415; 73030; 73090; 73110; 73130; 71260; 72125; 73200; 74177; 96372; Q9967; J2405; J2270; J7030; J1815; A4565

== ENCOUNTER 2024-01-16 22:29 | Emergency (ER) | payer OTHER, MEDICAID ==
[~2024-01-16] VITALS: Ht 175.3 cm; Wt 78.0 kg
[~2024-01-16 22:29] MED LIST changes: +HYDR-4001 MT; +IBUP-2028 MT
[2024-01-16 22:32] VITALS: O2SAT 98
[2024-01-16 23:41] LABS: HEMATOCRIT. 38.4 % (42.0-52.0); HEMOGLOBIN. 12.5 g/dL (14.0-18.0); MEAN CORPUSCULAR HEMOGLOBIN 28.9 pg (28.0-32.0); MEAN CORPUSCULAR HGB CONC 32.5 g/dL (31.0-37.0); MEAN CORPUSCULAR VOLUME 89.2 fL (80.0-94.0); MEAN PLATELET VOLUME 9.3 fl (7.4-10.4); PLATELET 397 x1000/uL (130-400); RED BLOOD CELL COUNT 4.31 mill/uL (4.7-6.1); RED CELL DISTRIBUTION WIDTH 13.2 % (11.6-14.6); WHITE BLOOD COUNT 15.1 x1000/uL (4.5-11.0)
[2024-01-16 23:46] LABS: INR 0.9; PROTHROMBIN TIME 9.9 sec (9.6-11.0)
[2024-01-16 23:48] LABS: AMMONIA < 10 uMol/L (<32); LACTIC ACID 2.8 mmol/L (0.4-2.0)
[2024-01-16 23:54] LABS: DIFFERENTIAL COMMENT 1
[2024-01-16 23:56] LABS: ALANINE AMINOTRANSFERASE 11 IU/L (10-49); ALBUMIN 4.8 g/dL (3.2-4.8); ASPARTATE AMINOTRANSFERASE 14 IU/L (<34); BILIRUBIN TOTAL 0.5 mg/dL (0.1-1.0); CALCIUM 8.9 mg/dL (8.7-10.4); CARBON DIOXIDE 25 mEq/L (21-32); CHLORIDE 96 mEq/L (98-107); CREATINE KINASE 63 IU/L (46-171); POTASSIUM 4.2 mEq/L (3.5-5.1); PROTEIN TOTAL 8.4 g/dL (6.0-8.3); SODIUM 129 mEq/L (136-145); THYROID STIMULATING HORMONE 1.32 uIU/mL (0.55-4.78); TROPONIN I HIGH SENSITIVITY 21 ng/L (3.0-53); UREA NITROGEN BLOOD 33 mg/dL (9-23)
[2024-01-17 00:34] LABS: CLARITY URINE CLEAR (CLEAR); COLOR URINE YELLOW (YELLOW); GLUCOSE URINE 3+ (NEGATIVE); KETONES URINE NEGATIVE (NEGATIVE); LEUKOCYTE ESTERASE URINE NEGATIVE (NEGATIVE); NITRITE URINE NEGATIVE (NEGATIVE); OCCULT BLOOD URINE TRACE (NEGATIVE); PH URINE 6.5 (4.5-8.0); PROTEIN URINE 1+ (NEGATIVE); SPECIFIC GRAVITY URINE 1.019 (1.005-1.030); UROBILINOGEN URINE 0.2 E.U./dL (0.2-1.0)
[2024-01-17 00:44] LABS: *AMPHETAMINES SCREEN URINE NEGATIVE (NEGATIVE); *BARBITURATES SCREEN URINE NEGATIVE (NEGATIVE); *BENZODIAZEPINES SCREEN URINE NEGATIVE (NEGATIVE); *COCAINE SCREEN URINE NEGATIVE (NEGATIVE); CANNABINOID URINE SCREEN NEGATIVE (NEGATIVE); ECSTASY MDMA SCREEN URINE NEGATIVE (NEGATIVE); METHADONE URINE SCREEN Neg (NEGATIVE); OPIATES URINE SCREEN NEGATIVE (NEGATIVE); PHENCYCLIDINE URINE SCREEN NEGATIVE (NEGATIVE)
[2024-01-17 00:52] LABS: CREATININE 1.7 mg/dL (0.6-1.3); ETHANOL BLOOD < 10 mg/dL (<10)
[2024-01-17 00:55] LABS: GLUCOSE 697 mg/dL (70-105)
[2024-01-17] MEDS: SODIUM CHLORIDE 0.9% 1,000 ML IV ONE (02:34)
[2024-01-17] MEDS: INSULIN REGULAR (HUMULIN R) 300UNITS/3ML VIAL SUBCUT NR (02:45)
[2024-01-17 03:18] LABS: RBC URINE 0-2 /hpf (0-2); WBC URINE 0-2 /hpf (0-2)
[2024-01-17 03:19] LABS: BACTERIA URINE NONE SEEN; SQUAMOUS EPITHELIAL CELL URINE NONE SEEN /lpf (RARE/1+)
[2024-01-17 05:33] LABS: PLATELET ESTIMATE NORMAL
[2024-01-17 07:22] VITALS: BP 186/87; PULSE 93; RESP 20; TEMP 98.6
== END 2024-01-17 07:25 | disposition short-term general hospital (02) ==
LOC: ER 22:29
DX: R41.0 Disorientation, unspecified (principal); E11.65 Type 2 diabetes mellitus with hyperglycemia; E86.0 Dehydration; I10 Essential (primary) hypertension; Z79.899 Other long term (current) drug therapy; Z20.822 Contact with and (suspected) exposure to COVID-19
CPT/HCPCS: 80053; 80320; 82140; 82550; 82962 ×2; 83880; 83605 ×2; 83690; 84443; 85025; 85610; 87040; 84484; 36415; 84145; 71045; 93005; 99285; 80305; 81003; 87086; 70450; 96360; 96361; 96372; 87426; J1815; G0480

== ENCOUNTER 2024-10-12 13:54 | Emergency (ER) | payer OTHER, MEDICAID ==
[~2024-10-12] VITALS: Ht 167.6 cm; Wt 70.0 kg
[2024-10-12 13:58] VITALS: O2SAT 96
[2024-10-12 14:51] LABS: BASOPHILS % 0.7 % (0.0-2.0); HEMATOCRIT. 35.4 % (42.0-52.0); HEMOGLOBIN. 11.6 g/dL (14.0-18.0); LYMPHOCYTES % 9.1 % (20.0-50.0); MEAN CORPUSCULAR HEMOGLOBIN 26.9 pg (28.0-32.0); MEAN CORPUSCULAR HGB CONC 32.7 g/dL (31.0-37.0); MEAN CORPUSCULAR VOLUME 82.4 fL (80.0-94.0); MEAN PLATELET VOLUME 8.5 fl (7.4-10.4); MONOCYTES % 7.3 % (2.0-8.0); NEUTROPHILS % 82.9 % (40.0-76.0); PLATELET 496 x1000/uL (130-400); RED BLOOD CELL COUNT 4.29 mill/uL (4.7-6.1); RED CELL DISTRIBUTION WIDTH 16.3 % (11.6-14.6); WHITE BLOOD COUNT 18.5 x1000/uL (4.5-11.0)
[2024-10-12 14:57] LABS: CLARITY URINE TURBID (CLEAR); COLOR URINE ORANGE (YELLOW); GLUCOSE URINE 3+ (NEGATIVE); KETONES URINE TRACE (NEGATIVE); LEUKOCYTE ESTERASE URINE 2+ (NEGATIVE); NITRITE URINE NEGATIVE (NEGATIVE); OCCULT BLOOD URINE 3+ (NEGATIVE); PH URINE 5.5 (4.5-8.0); PROTEIN URINE 4+ (NEGATIVE); SPECIFIC GRAVITY URINE 1.023 (1.005-1.030); UROBILINOGEN URINE 0.2 E.U./dL (0.2-1.0)
[2024-10-12 15:00] LABS: CHLORIDE 103 mEq/L (98-107); POTASSIUM 4.3 mEq/L (3.5-5.1); SODIUM 136 mEq/L (136-145)
[2024-10-12 15:01] LABS: CARBON DIOXIDE 26 mEq/L (21-32)
[2024-10-12 15:02] LABS: CALCIUM 9.5 mg/dL (8.7-10.4)
[2024-10-12 15:06] LABS: CREATININE 1.6 mg/dL (0.6-1.3); UREA NITROGEN BLOOD 29 mg/dL (9-23)
[2024-10-12 15:09] LABS: GLUCOSE 124 mg/dL (70-105); TROPONIN I HIGH SENSITIVITY 24 ng/L (3.0-53)
[2024-10-12 15:13] LABS: INR 0.9; PROTHROMBIN TIME 10.6 sec (9.6-11.0)
[2024-10-12 15:17] LABS: BG BASE EXCESS 1.9 mmol/L (-2.0-3.0); BG CARBOXYHEMOGLOBIN 0.6 % (0.5-1.5); BG DEOXYHEMOGLOBIN 2.2 % (0.0-5.0); BG FRACTION INSPIRED OXYGEN 28; BG HCO3 ACT 25.4 mmol/L (21.0-28.0); BG METHEMOGLOBIN 0.1 % (0.5-1.5); BG OXYGEN SATURATION 97.8 % (94.0-98.0); BG OXYHEMOGLOBIN 97.1 % (94.0-98.0); BG PCO2 35.4 mmHg (35.0-48.0); BG PH 7.473 (7.350-7.450); BG PO2 99.5 mmHg (83.0-108.0); BG SAMPLE SITE RIGHT RADIAL; BG TOTAL HEMOGLOBIN 10.7 g/dL (13.5-17.5); BG VENT MODE NASAL CANNULA
[2024-10-12 15:25] LABS: BACTERIA URINE 4+; RBC URINE TNTC /hpf (0-2); SQUAMOUS EPITHELIAL CELL URINE FEW /lpf (RARE/1+); WBC URINE TNTC /hpf (0-2); YEAST URINE NONE SEEN
[2024-10-12] MEDS: CEFTRIAXONE 1GM/50ML 50 ML IV NR (16:42)
[2024-10-12] MEDS: SODIUM CHLORIDE 0.9% 1,000 ML IV ONE (17:03)
[2024-10-12 17:16] LABS: TROPONIN I HIGH SENSITIVITY 23 ng/L (3.0-53)
[2024-10-12] MEDS: DOXYCYCLINE 100MG/100ML 100 ML IV SCH (17:35)
[2024-10-12] MEDS ORDERED: ACETAMINOPHEN 650MG/20.3ML UDC PO PRN (21:00)
[2024-10-12] MEDS ORDERED: ONDANSETRON HCL 4MG/2ML INJ IV PRN (21:00)
[2024-10-12 21:01] VITALS: BP 129/71; PULSE 73; RESP 18; TEMP 36.94740; O2SAT 98
[2024-10-12] MEDS ORDERED: IPRATROPIUM/ALBUTEROL 0.5-3(2.5)MG/3ML NEB HHN SCH (21:30)
[2024-10-12] MEDS ORDERED: IOHEXOL-350 100 ML BOTTLE ONE (23:00)
== END 2024-10-12 21:31 | disposition short-term general hospital (02) ==
LOC: ER 14:00 → EDBEDREQ 20:53 → EDBEDREQTM 20:53 → ER 21:31
DX: G93.40 Encephalopathy, unspecified (principal); N39.0 Urinary tract infection, site not specified; J18.9 Pneumonia, unspecified organism; A41.9 Sepsis, unspecified organism; E11.9 Type 2 diabetes mellitus without complications; F03.90 Unspecified dementia, unspecified severity, without behavioral disturbance, psychotic disturbance, mood disturbance, and anxiety; I10 Essential (primary) hypertension; Z79.84 Long term (current) use of oral hypoglycemic drugs; Z79.899 Other long term (current) drug therapy
CPT/HCPCS: 99291; 70496; 96365; 71045; 96367; 80048; 81003; 83880; 83605; 84443; 85025; 85610; 87040; 87086; 87186; 84484; 87077; 36415; 70498; 82805; 82375; 93005; 36600; 70450; Q9967; J0696; J3490